=== PATIENT | female | born 1950 | race Asian ===

== ENCOUNTER 2025-06-25 00:10 | Inpatient (IN) | payer MEDICARE ==
[2025-06-25] VITALS (7 sets, daily range): BP systolic 122–138; BP diastolic 59–76; PULSE 65–78; RESP 16–18; TEMP 36.1956–36.4; O2SAT 95–97
[~2025-06-25] VITALS: Ht 154.9 cm; Wt 83.9 kg
[2025-06-25 00:48] LABS: BASOPHILS % 1.3 % (0.0-2.0); EOSINOPHILS % 5.3 % (0.0-5.0); HEMATOCRIT. 39.2 % (36.0-48.0); HEMOGLOBIN. 12.9 g/dL (12.0-16.0); LYMPHOCYTES % 35.8 % (20.0-50.0); MEAN PLATELET VOLUME 8.3 fl (7.4-10.4); MONOCYTES % 11.4 % (2.0-8.0); NEUTROPHILS % 46.2 % (40.0-76.0); PLATELET 242 x1000/uL (130-400); RED BLOOD CELL COUNT 4.61 mill/uL (4.2-5.4); RED CELL DISTRIBUTION WIDTH 14.3 % (11.6-14.6)
[2025-06-25 01:02] LABS: CREATININE 0.7 mg/dL (0.6-1.0); UREA NITROGEN BLOOD 15 mg/dL (9-23)
[2025-06-25 01:03] LABS: PROTEIN TOTAL 6.6 g/dL (6.0-8.3)
[2025-06-25 01:04] LABS: ASPARTATE AMINOTRANSFERASE 20 IU/L (<34); BILIRUBIN DIRECT < 0.1 mg/dL (<=3.0)
[2025-06-25 01:05] LABS: BILIRUBIN TOTAL 0.2 mg/dL (0.1-1.0)
[2025-06-25] MEDS: SODIUM CHLORIDE 0.9% 1,000 ML IV ONE (01:42)
[2025-06-25] MEDS: ONDANSETRON HCL 4MG/2ML INJ IV ONE (01:42)
[2025-06-25] MEDS: FAMOTIDINE 20MG/2ML VIAL IV ONE (01:42)
[2025-06-25] MEDS: KETOROLAC 15MG/ML VIAL IV ONE (01:42)
[2025-06-25] MEDS ORDERED: ONDANSETRON HCL 4MG/2ML INJ IV PRN (03:30)
[2025-06-25] MEDS ORDERED: IPRATROPIUM/ALBUTEROL 0.5-3(2.5)MG/3ML NEB HHN PRN (03:30)
[2025-06-25] MEDS ORDERED: ACETAMINOPHEN 325MG TABLET PO PRN ×2 (03:30)
[2025-06-25] MEDS ORDERED: DEXTROSE 50% WATER 50ML SYRINGE IV PRN (03:30)
[2025-06-25] MEDS: SODIUM CHLORIDE 0.45% 1,000 ML IV SCH (03:30)
[2025-06-25] MEDS ORDERED: LORAZEPAM 2MG/ML UD SYRINGE IV PRN (03:45)
[2025-06-25] MEDS: CARBIDOPA/LEVODOPA 25/100MG TABLET PO SCH (06:38)
[2025-06-25] MEDS: ENOXAPARIN 40MG/0.4ML SYR SUBCUT SCH (09:00)
[2025-06-25] MEDS ORDERED: LAMOTRIGINE 100MG TABLET PO SCH ×2 (09:00→21:00)
[2025-06-25] MEDS: LOSARTAN 25 MG TABLET PO SCH (09:01)
[2025-06-25] MEDS: PANTOPRAZOLE SODIUM 40 MG/VIAL IV SCH (09:15)
[2025-06-25] MEDS: KETOROLAC 15MG/ML VIAL IV PRN (09:16)
[2025-06-25] MEDS: CLONAZEPAM 1MG TABLET PO SCH (10:00)
[2025-06-25] MEDS ORDERED: GABAPENTIN 300MG CAPSULE PO SCH (10:00)
[2025-06-25] MEDS: LAMOTRIGINE 100MG TABLET PO SCH (10:21)
[2025-06-25 10:38] LABS: INR 0.9
[2025-06-25 10:41] LABS: ASPARTATE AMINOTRANSFERASE 22 IU/L (<34); BILIRUBIN DIRECT 0.1 mg/dL (<=3.0); PROTEIN TOTAL 6.3 g/dL (6.0-8.3)
[2025-06-25 10:42] LABS: BILIRUBIN TOTAL 0.4 mg/dL (0.1-1.0); PHOSPHORUS 3.4 mg/dL (2.5-4.9)
[2025-06-25] MEDS: GABAPENTIN 300MG CAPSULE PO SCH ×2 (11:00→20:37)
[2025-06-25] MEDS ORDERED: METF-1150 MT (14:08)
[2025-06-25] MEDS ORDERED: DILT180C66 MT (14:11)
[2025-06-25] MEDS ORDERED: BUDE6HFA INH (14:12)
[2025-06-25] MEDS ORDERED: FLUT50BL (14:13)
[2025-06-25] MEDS ORDERED: CETI5TAB9 MT (14:15)
[2025-06-25] MEDS ORDERED: [UNRECOGNIZED DRUG - CODE] IM (14:25)
[2025-06-25] MEDS ORDERED: CLONAZEPAM 1MG TABLET PO SCH (21:00)
[2025-06-26] VITALS: BP 116/63; PULSE 77; RESP 18; TEMP 36.4; O2SAT 98
[2025-06-26 04:00] VITALS: BP 117/58; PULSE 68; RESP 17; TEMP 36.2; O2SAT 97
[2025-06-26 08:00] VITALS: BP 144/84; PULSE 60; RESP 18; TEMP 35.9; O2SAT 97
[2025-06-26] MEDS: DULOXETINE HCL 20MG DR CAPSULE PO SCH (08:38)
[2025-06-26 09:22] LABS: BASOPHILS % 0.7 % (0.0-2.0); EOSINOPHILS % 4.5 % (0.0-5.0); HEMATOCRIT. 37.4 % (36.0-48.0); HEMOGLOBIN. 12.3 g/dL (12.0-16.0); LYMPHOCYTES % 28.8 % (20.0-50.0); MEAN PLATELET VOLUME 7.7 fl (7.4-10.4); MONOCYTES % 8.7 % (2.0-8.0); NEUTROPHILS % 57.3 % (40.0-76.0); PLATELET 220 x1000/uL (130-400); RED BLOOD CELL COUNT 4.45 mill/uL (4.2-5.4); RED CELL DISTRIBUTION WIDTH 13.9 % (11.6-14.6)
[2025-06-26 09:31] LABS: CREATININE 0.7 mg/dL (0.6-1.0); TRIGLYCERIDE 112 mg/dL (0-150); UREA NITROGEN BLOOD 12 mg/dL (9-23)
[2025-06-26 09:32] LABS: LDL CHOLESTEROL 73 mg/dL (5-100)
[2025-06-26 09:36] LABS: T4 FREE 1.09 ng/dL (0.89-1.76)
[2025-06-26 12:51] LABS: PROTEIN TOTAL 6.1 g/dL (6.0-8.3)
[2025-06-26 12:53] LABS: ASPARTATE AMINOTRANSFERASE 23 IU/L (<34); BILIRUBIN DIRECT 0.1 mg/dL (<=3.0); BILIRUBIN TOTAL 0.3 mg/dL (0.1-1.0)
== END 2025-06-26 11:41 | disposition left against medical advice (07) | DRG 446 ==
LOC: ER 00:10 → 4WST 02:39 → EDBEDREQ 02:48 → EDBEDREQTM 02:48 → ENRESERV 03:05
PROVIDERS: ADMIT Hospitalist; ATTEND Hospitalist
DX: K80.70 Calculus of gallbladder and bile duct without cholecystitis without obstruction (principal); G20.A1 Parkinson's disease without dyskinesia, without mention of fluctuations; E66.9 Obesity, unspecified; K76.0 Fatty (change of) liver, not elsewhere classified; I10 Essential (primary) hypertension; G40.909 Epilepsy, unspecified, not intractable, without status epilepticus; F32.A Depression, unspecified; Z53.29 Procedure and treatment not carried out because of patient's decision for other reasons; E78.5 Hyperlipidemia, unspecified; F41.1 Generalized anxiety disorder; Z68.35 Body mass index [BMI] 35.0-35.9, adult
CPT/HCPCS: 36415; 71045; 76705; 80048; 80061; 80076; 83036; 83735; 84100; 84439; 84443; 85025; 86850; 86900; 93005; 99285; J1308; J1650; J1885; J2405; J2470; J7030